=== PATIENT | male | born 1950 | race Caucasian/White ===

== ENCOUNTER 2019-03-14 11:24 | Emergency (ER) | payer MEDICARE ==
--- NOTE | 2019-03-14 12:46 | ED Physician Documentation ---
PD HPI NVD - Stated complaint Stated Complaint: VOMITING - Chief complaint Chief Complaint: Cardiac - History obtained from History obtained from: Patient - History of Present Illness Timing - onset: Last night (He states he ate a steak sandwich quickly and then went to a ball game. He felt that the sandwich last bites got stuck. He vomited a couple of times with a little bit of food material but then subsequently was vomiting frequently with just saliva or attempts at water intake. He states it improved a little bit towards bedtime use able to sleep an hour or 2 at a time and then would have to wake up and vomit. This morning when he attempted to drink a little bit of water and felt uncomfortable again and he vomited immediately. He denied any dizziness or lightheadedness. He denies any chest pain per se.) Timing - details: Abrupt onset (At the end of eating a steak sandwich meal.), Still present Associated symptoms: No: Fever, Abdominal pain, Near syncope / syncope, Loss of appetite Contributing factors: No: Sick contact Worsened by: Eating (attempting even small fluid intake) Similar symptoms before: No diagnosis (He states he has had just brief episodes for a minute or 2 rarely in the past. No episodes like this. He describes some element of heartburn intermittently.) Recently seen: Not recently seen Review of Systems Constitutional: denies: Fever, Chills Nose: denies: Rhinorrhea / runny nose, Congestion Throat: denies: Sore throat Cardiac: denies: Palpitations, Pedal edema, Calf pain Respiratory: denies: Dyspnea, Cough GI: reports: Nausea, Vomiting (just since dinner last evening). denies: Abdominal Pain, Diarrhea, Hematemesis, Bloody / black stool Musculoskeletal: denies: Neck pain, Back pain Neurologic: denies: Generalized weakness, Focal weakness, Numbness, Near syncope, Headache PD PAST MEDICAL HISTORY - Past Medical History Past Medical History: Yes Cardiovascular: [place] Endocrine/Autoimmune: Type 2 diabetes - Past Surgical History Past Surgical History: Yes Cardiovascular: Coronary stent - Present Medications Home Medications: Ambulatory Orders Medication Instructions Recorded Confirmed Famotidine 20 mg PO DAILY #30 tablet 03/14/19 - Allergies Allergies/Adverse Reactions: Allergies Allergy/AdvReac Type Severity Reaction Status Date / Time No Known Drug Allergies Allergy Verified 03/14/19 15:52 - Social History Does the pt smoke?: No Smoking Status: Never smoker Does the pt drink ETOH?: No Does the pt have substance abuse?: No - Immunizations Immunizations are current?: Yes - POLST Patient has POLST: No PD ED PE NORMAL - Vitals Vital signs reviewed: Yes - General General: Alert and oriented X 3, No acute distress, Well developed/nourished - HEENT HEENT: Moist mucous membranes, Pharynx benign - Neck Neck: Supple, no meningeal sign, No adenopathy - Cardiac Cardiac: No murmur. No: RRR (Irregular with a controlled rate approximately 100. He states he has had episodes of A. fib in the past. He denies any feeling of palpitations.) - Respiratory Respiratory: Clear bilaterally - Abdomen Abdomen: Soft, Non tender - Back Back: No CVA TTP - Derm Derm: Normal color, Warm and dry - Extremities Extremities: No deformity, No tenderness to palpate, Normal ROM s pain, No edema, No calf tenderness / cord - Neuro Neuro: Alert and oriented X 3, No motor deficit, Normal speech Results - Vitals Vitals: Oxygen O2 Source Room air - Labs Labs: Laboratory Tests 03/14/19 03/14/19 03/14/19 13:50 13:50 13:50 WBC 7.6 RBC 5.83 Hgb 17.6 Hct 50.9 MCV 87.3 MCH 30.2 MCHC 34.6 RDW 12.8 Plt Count 175 MPV 10.1 Neut # (Auto) 5.5 Lymph # (Auto) 1.4 L [place] # (Auto) 0.6 Eos # (Auto) 0.2 Baso # (Auto) 0.0 Absolute Nucleated RBC 0.00 Nucleated RBC % 0.0 Sodium 140 Potassium 4.0 Chloride 105 Carbon Dioxide 23 Anion Gap 12.0 BUN 15 Creatinine 0.8 Estimated GFR (MDRD) 97 Glucose 307 H POC Whole Bld Glucose Calcium 9.7 Magnesium 2.2 Total Bilirubin 1.5 H AST 24 ALT 34 Alkaline Phosphatase 77 Troponin I High Sens 17.1 Total Protein 7.7 Albumin 4.3 Globulin 3.4 Albumin/Globulin Ratio 1.3 Lipase 37 03/14/19 15:56 WBC RBC Hgb Hct MCV MCH MCHC RDW Plt Count MPV Neut # (Auto) Lymph # (Auto) [place] # (Auto) Eos # (Auto) Baso # (Auto) Absolute Nucleated RBC Nucleated RBC % Sodium Potassium Chloride Carbon Dioxide Anion Gap BUN Creatinine Estimated GFR (MDRD) Glucose POC Whole Bld Glucose 295 H Calcium Magnesium Total Bilirubin AST ALT Alkaline Phosphatase Troponin I High Sens Total Protein Albumin Globulin Albumin/Globulin Ratio Lipase PD MEDICAL DECISION MAKING - ED course Complexity details: re-evaluated patient (After IV fluids as well as nitroglycerin and magnesium and famotidine IV. We did have him try a p.o. challenge with water and some of the gas producing medication from the OR. He was unable to tolerate this and had vomiting of the clear fluid right after. It still seems like an esophageal obstruction. I will contact Dr. Bosch who is on-call for surgery.), considered differential, d/w patient ED course: 's office was in a case took couple of hours from to see the patient. During that time the patient did become able to drink water without vomiting and so seems to be on impacted. We will have him home with soft foods only overnight into tomorrow. Departure - Departure Disposition: Home, Self Care Clinical Impression: Food impaction of esophagus Qualifiers: Encounter type: initial encounter Qualified Code(s): T18.128A - Food in esophagus causing other injury, initial encounter Atrial fibrillation Qualifiers: Atrial fibrillation type: paroxysmal Qualified Code(s): I48.0 - Paroxysmal atrial fibrillation Condition: Stable Record reviewed to determine appropriate education?: Yes Instructions: ED Foreign Body Esophageal Rslv Follow-Up: Delvin Arambula MD [Provider Admit Priv/Credential] - Prescriptions: Famotidine 20 mg PO DAILY #30 tablet Comments: Liquids only or soft food only tonight into tomorrow. Progress after that as able. There likely will be a little inflammation at the esophagus from the foreign body having been there. This will likely day take a day or 2 to resolve. I would suggest some famotidine acid reducing medicine daily for a month or so as a food impaction like this often correlates or is caused by some reflux esophageal irritation. Follow-up with your primary care in a few days if it feels like her heartbeat is still irregular. Most commonly the fibrillation will resolve again once the other stresses on her system improved, i.e. blocked esophagus being better now. Discharge Date/Time: 03/14/19 18:23
[2019-03-14] MEDS ORDERED: NITROGLYCERIN SL 0.4 MG TABLET SL STA ×2 (13:25→15:05)
[2019-03-14] MEDS ORDERED: FAMOTIDINE 20 MG/2 ML VIAL IVP STA (13:25)
[2019-03-14] MEDS ORDERED: MAGNESIUM SULFATE 2 GRAM 2 GM/50 ML BAG IV ONE (13:25)
[2019-03-14 14:09] LABS: BASOPHILS % (AUTO) 0.4 %; EOSINOPHILS # (AUTO) 0.2 10^3/uL (0.0-0.7); EOSINOPHILS % (AUTO) 2.1 %; HGB - HEMOGLOBIN 17.6 g/dL (14.0-18.0); LYMPHOCYTES # (AUTO) 1.4 10^3/uL (1.5-3.5); LYMPHOCYTES % (AUTO) 18.1 %; MEAN CORPUSCULAR HEMOGLOBIN 30.2 pg (27.0-31.0); MEAN CORPUSCULAR HGB CONC 34.6 g/dL (32.0-36.0); MEAN CORPUSCULAR VOLUME 87.3 fL (80.0-94.0); MEAN PLATELET VOLUME 10.1 fL (7.4-11.4); MONOCYTES # (AUTO) 0.6 10^3/uL (0.0-1.0); MONOCYTES % (AUTO) 7.2 %; NEUTROPHILS # (AUTO) 5.5 10^3/uL (1.5-6.6); NEUTROPHILS % (AUTO) 71.9 %; PLT - PLATELET COUNT 175 10^3/uL (130-450); RED BLOOD COUNT 5.83 10^6/uL (4.70-6.10); RED CELL DISTRIBUTION WIDTH 12.8 % (12.0-15.0); WHITE BLOOD COUNT 7.6 x10^3/uL (4.8-10.8)
[2019-03-14 14:20] LABS: ALBUMIN 4.3 g/dL (3.2-5.5); ALBUMIN/GLOBULIN RATIO 1.3 (1.0-2.2); BILIRUBIN,TOTAL 1.5 mg/dL (0.2-1.0); CALCIUM 9.7 mg/dL (8.5-10.3); CREATININE 0.8 mg/dL (0.6-1.2); MAGNESIUM 2.2 mg/dL (1.7-2.8); TOTAL PROTEIN 7.7 g/dL (6.7-8.2)
[2019-03-14] MEDS ORDERED: METOPROLOL 5 MG/5 ML VIAL IVP STA (15:17)
[2019-03-14] MEDS ORDERED: GLUCAGON 1 MG/ML VIAL IVP STA (15:41)
[2019-03-14] MEDS ORDERED: ONDANSETRON 4 MG/2 ML VIAL IVP STA (15:49)
[2019-03-14 18:19] VITALS: BP 128/90
--- NOTE | 2019-03-15 00:55 | CONSULTATION NOTE ---
Referring Provider Name of Referring Provider:: Dr. Delvin Christensen Consult Date: 03/14/19 Chief Complaint - Chief Complaint Chief Complaint: Vomiting with the sensation of food (steak) stuck in esophagus History of Present Illness - Admitted From Admitted From:: Not admitted - History Obtained From Records Reviewed: Not reviewed History obtained from: Primarily chart and Dr. Christensen Exam Limitations: None - History of Present Illness HPI Comment/Other: Dr. Christensen called me on consultation on this very pleasant 68-year-old male for evaluation and possible treatment of an esophageal foreign body (steak). When I spoke with Dr. Christensen it was not an emergency and I was in between surgical cases and we discussed using glucagon to see whether or not we can get the muscle to relax and allow the steak to pass. After I perform eye surgery and I return to see the patient the patient looked at me and stated that he could swallow water and swallowed 2 glasses of water in front of me as proof. As such I explained to the patient that he did not need to see me today but that he should see me in the future for a EGD to ensure that he does not have a stenosis or area of narrowing. I gave him an example of a Schatzki's ring as a possibility. Once I stated that the patient told me that his sister had a similar situation. Other than shake the patient's hand I did not perform a physical examination. History - Past Medical History Cardiovascular: reports: [place] Endocrine/Autoimmune: reports: Type 2 diabetes MRSA Hx?: No - Past Surgical History Cardiovascular: reports: Coronary stent - POLST Patient has POLST: No Meds/Allgy - Home Medications Home Medications: Ambulatory Orders Medication Instructions Recorded Confirmed Famotidine 20 mg PO DAILY #30 tablet 03/14/19 - Allergies Allergies/Adverse Reactions: Allergies Allergy/AdvReac Type Severity Reaction Status Date / Time No Known Drug Allergies Allergy Verified 03/14/19 15:52 Exam - Vital Signs Reviewed Vital Signs: Yes Vital Signs: Vital Signs x48h Pulse Resp BP Pulse Ox 03/14/19 18:17 91 20 128/90 H 95 03/14/19 17:50 94 24 136/91 H 100 Conclusion/Plan - Diagnosis Diagnosis: Transient esophageal obstruction due to food bolus that resolved (with glucagon) prior to my evaluating the patient - Plan Plan: Elective EGD with the patient to be seen in my office. This was discussed with the patient who vocalized an understanding and an agreement. Please note that less than 15 minutes of [id number] time were spent with the patient and in the creation of this note. - Lab Results Lab results reviewed: Yes Fish Bones: 03/14/19 13:50 03/14/19 13:50
== END 2019-03-14 18:23 | disposition home or self-care (01) ==
LOC: ED 11:24
DX: T18.128A Food in esophagus causing other injury, initial encounter (principal); X58.XXXA Exposure to other specified factors, initial encounter; I48.0 Paroxysmal atrial fibrillation; E11.9 Type 2 diabetes mellitus without complications
CPT/HCPCS: 36415; 80053; 83690; 83735; 84484; 85025; 93005; 96365; 96375; 99284; 99285; A9270